=== PATIENT | female | born 1980 | race Caucasian/White ===

== ENCOUNTER 2017-09-13 14:20 | Observation (INO) ==
[2017-09-13] MEDS ORDERED: *HR* HYDROmorphone 2 MG/ML SYRINGE IVP ONE (16:52)
--- NOTE | 2017-09-13 16:56 | Emergency Department Note ---
Disposition Clinical Impression: Lumbar disc herniation, Intractable back pain Abdominal pain Qualifiers: Abdominal location: unspecified location Qualified Code(s): R10.9 - Unspecified abdominal pain Sciatica Qualifiers: Laterality: right Qualified Code(s): M54.31 - Sciatica, right side Disposition: Admitted As Inpatient Condition: Fair Time of Disposition: 17:06 Abdominal Pain HPI - General Chief Complaint: ED Abdominal Pain Stated Complaint: ABD Pain/Right leg Time Seen by Provider: 09/13/17 16:32 Source: patient Mode of arrival: ambulatory Limitations: no limitations Nursing Notes Reviewed: Yes Vital Signs Reviewed: Yes - History of Present Illness HPI Narrative: 37-year-old female presents to emergency Department with concerns of left lower quadrant abdominal pain. I evaluated the patient yesterday for concerns of left small lower extremity paresthesias as well as a radiculopathy down the right lower extremity. MRI was obtained yesterday which showed herniated disks in the lumbar spine however it did not show evidence of central cord compression. Patient's pain was treated well with lidocaine patch and she was given multiple prescriptions for home. Today the patient states that she slept well last night however while sitting on the couch earlier today she developed acute pain to the left lower quadrant of the abdomen. Patient states the pain is sharp and stabbing, does not radiate. Denies vaginal bleeding or vaginal discharge. Denies hematochezia or melena. Denies recent trauma since the evaluation yesterday. Pain Scale: 10 - Related Data Home Medications Medication Instructions Recorded Confirmed Cetirizine HCl [Zyrtec] 10 mg PO DAILY 04/15/16 09/13/17 Estradiol 2 mg PO DAILY 04/15/16 09/13/17 Losartan Potassium [Cozaar] 100 mg PO DAILY 04/15/16 09/13/17 Spironolactone [Aldactone] 200 mg PO DAILY 04/15/16 09/13/17 Gabapentin [Neurontin] 300 mg PO TID 09/13/17 09/13/17 Ibuprofen [Motrin] 800 mg PO Q6H PRN 09/13/17 09/13/17 Previous Rx's Medication Instructions Recorded OxyCODONE/APAP 5/325 [Percocet 1 - 2 each PO Q6HR PRN #14 tablet 09/12/17 5/325 MG] diazePAM [Valium] 5 mg PO TID #10 tablet 09/12/17 predniSONE [Prednisone] 50 mg PO DAILY #5 tablet 09/12/17 Allergies Allergy/AdvReac Type Severity Reaction Status Date / Time No Known Allergies Allergy Verified 09/12/17 11:05 All systems ED: reviewed and negative except as stated. Review of Systems: As Per HPI Abdominal Pain PMH - Past Medical History Medical history: Reports: hypertension, migraine Female Surgical History: Reports: appendectomy, cholecystectomy, hysterectomy, orthopedic, other, Tonsillectomy [employer] history: Reports: polycystic ovary syndrome, bilateral tubal ligation Psychiatric history: Reports: no psych history - Social History Smoking status: Never smoker Alcohol use: Reports: none Drug use: Reports: none Physical Exam General: Alert, standing at the bedside, crying secondary to pain. Skin: Warm, dry, intact Head: Normocephalic and atraumatic Neck: Supple, trachea midline and no tenderness Cardiovascular: RRR, no murmur, normal perfusion Respiratory: CTAB, no wheezing, cough, or respiratory distress Musculoskeletal: Normal strength, no tenderness, swelling or deformity GI: Soft, tenderness to palpation of the left lower quadrant of the abdomen without evidence of rigidity, guarding, or rebound. Neuro: A&O to person, place, time and situation. Patient has paresthesias to the left proximal lateral thigh in the distribution of L4. Patient ambulating in the emergency department and does not have loss of motor function or strength. - General Limitations: no limitations General appearance: alert, in no apparent distress Course Vital Signs Temperature 98.9 F 09/13/17 14:21 Pulse Rate 115 09/13/17 14:21 Respiratory Rate 20 09/13/17 14:21 Blood Pressure 136/84 09/13/17 14:21 O2 Sat by Pulse Oximetry 96 09/13/17 14:21 Temperature 98.9 F 09/13/17 14:21 Pulse Rate 86 09/13/17 19:44 Respiratory Rate 15 09/13/17 19:44 Blood Pressure 135/82 09/13/17 19:44 O2 Sat by Pulse Oximetry 96 09/13/17 19:44 Oxygen Delivery Oxygen Delivery Room Air Abdominal Pain - MDM Narrative Medical decision making narrative: 1650: Patient was asked whether her to the back was worse today however she states it is unchanged and possibly improved as she was able to sleep during the night. Patient stated initially that she was only concerned about both the left lower quadrant abdominal pain as well as the back pain. I ordered a CT of the abdomen and pelvis to evaluate for possible colitis versus diverticulitis versus ureterolithiasis. I also ordered pain medications in an attempt to treat her pain. Patient then spoke to the nurse stating she wanted to leave the hospital without further evaluation and wishes to go to [place] for further evaluation of her back pain. Patient was counseled on benefits and risks of treatment end of the risks of leaving without sufficient evaluation being performed and she repeated what was discussed in own terms. 1705: Patient now agrees to stay for further care and evaluation. We will continue with initial plan of CT and pain medication for further evaluation. 1920: Patient was given multiple doses of pain medications. She is still in considerable pain and crying in the room. She does not feel comfortable to return home to follow-up with primary care provider. Patient will be admitted for further care of her intractable pain. - Medical Records Medical records reviewed: Yes I reviewed the patient's medical records. - Lab Data Lab Results 09/13/17 Range/Units 17:10 Urine Color Yellow (Yellow) Urine Clarity Clear (Clear) Urine pH 6.0 (5.0-8.0) pH Units Ur Specific [place] > 1.030 H (1.010-1.025) Urine Protein Trace (Neg-Trace) mg/dL Urine Glucose (UA) Normal (Normal) mg/dL Urine Ketones Negative (Negative) mg/dL Urine Blood Negative (Negative) Urine Nitrite Negative (Negative) Urine Bilirubin Small H (Negative) Urine Urobilinogen Normal (Normal) mg/dL Ur Leukocyte Esterase Negative (Negative) Urine Microscopic RBC 0-3 (0-3) per hpf Urine Microscopic WBC 5-15 H (0-3) per hpf Ur Squamous Epith Cells Many H (None-Few) per lpf Calcium Oxalate Crystal Present Urine Bacteria Few (None-Few) per hpf Hyaline Casts None Seen (None-Few) per lpf Ur Culture Indicated? NO (NO) - Radiology Data Radiology results reviewed: Yes I reviewed the patient's radiology results.
[2017-09-13 17:23] LABS: Bilirubin,Urine Small (Negative); Blood,Urine Negative (Negative); Clarity,Urine Clear (Clear); Color,Urine Yellow (Yellow); Glucose,Urine (UA) Normal (Normal); Ketones,Urine Negative (Negative); Leukocyte Esterase,Urine Negative (Negative); Nitrite,Urine Negative (Negative); Protein,Urine Trace mg/dL (Neg-Trace); Specific Gravity,Urine > 1.030 (1.010-1.025); Urobilinogen,Urine Normal (Normal)
[2017-09-13 17:25] LABS: Bacteria,Urine Few per hpf (None-Few); Hyaline Casts,Urine None Seen per lpf (None-Few); Squamous Epithelial Cell,Urine Many per lpf (None-Few)
[2017-09-13 17:34] LABS: Calcium Oxalate Crystals,Urine Present; RBC,Urine 0-3 per hpf (0-3)
[2017-09-13] MEDS ORDERED: *HR* HYDROmorphone (PF) 1 MG/ML SYRINGE IVP ONE (19:03)
[2017-09-13] MEDS ORDERED: Ondansetron 4 MG/2 ML VIAL IVP ONE (19:03)
--- NOTE | 2017-09-13 21:06 | Internal Med History&Physical ---
Date of Encounter: 09/13/17 Time of Encounter: 20:45 Assessment and Plan (1) Lumbar disc herniation Current visit: Yes Status: Acute Add steroids, muscle relaxant, pain control, discussed with spine surgery he will come and evaluate patient (2) Abdominal pain Current visit: Yes Status: Acute Possible secondary to constipation would add laxative Qualifiers: Abdominal location: lower abdomen, unspecified Qualified Code(s): R10.30 - Lower abdominal pain, unspecified (3) Intractable back pain Current visit: Yes Status: Acute Titrate medication, try to avoid narcotics use non narcotics if possible Internal Medicine - H&P: HPI Chief complaint: Back pain Admitted From: Emergency Dept History of present illness: Ms. Santana is a 37 year old female came to the emergency room was complaining of two-week history of severe lower back pain 10 out of 10 in severity pressure- like sensation radiating to bilateral lower extremity associated with the right lower extremity shooting pain and numbness tingling sensation left lower extremity in addition to weakness left lower extremities compared to right or right lower extremities. Patient stated that she was treated as an outpatient and she was given steroid in addition to Motrin which helped to improve her pain. Patient stated after she finished her steroid she started to have severe lower back pain 10 out of 10 in severity, patient had MRI done yesterday which showed small central disc extrusion at L5-S1 with slight inferior migration. No gross nerve root compression or stenosis is identified. Past Med Surg Social Fam HX - Past Medical History Medical history: hypertension, migraine Psychiatric history: no psych history - Past Surgical History Surgical History: appendectomy, , hysterectomy, orthopedic, other - Social History Smoking Status: Never smoker Smokeless Tobacco Status: No Alcohol use: none Drug use: none - Family History Father Living Status: Hx Family Cardiac Disorders: Yes Mother Hx Family Cardiac Disorders: Yes (HTN) Hx Family Endocrine Disorder: Yes (Graves disease) Internal Medicine - H&P: Meds Cetirizine HCl [Zyrtec] 10 mg PO DAILY 04/15/16 [History] Estradiol 2 mg PO DAILY 04/15/16 [History] Losartan Potassium [Cozaar] 100 mg PO DAILY 04/15/16 [History] Spironolactone [Aldactone] 200 mg PO DAILY 04/15/16 [History] OxyCODONE/APAP 5/325 [Percocet 5/325 MG] 1 - 2 each PO Q6HR PRN #14 tablet 09/12 [Rx] diazePAM [Valium] 5 mg PO TID #10 tablet 09/12/17 [Rx] predniSONE [Prednisone] 50 mg PO DAILY #5 tablet 09/12/17 [Rx] Gabapentin [Neurontin] 300 mg PO TID 09/13/17 [History] Ibuprofen [Motrin] 800 mg PO Q6H PRN 09/13/17 [History] 3 Allergy/AdvReac Type Severity Reaction Status Date / Time No Known Allergies Allergy Verified 09/12/17 11:05 All Systems PM: A 10-system review of systems was performed and is negative for pertinent findings except as documented above in the HPI. - Constitutional Vitals: Temp Pulse Resp BP Pulse Ox 98.9 F 76 14 124/76 95 09/13/17 14:21 09/13/17 20:38 09/13/17 20:38 09/13/17 20:38 09/13/17 20:38 - Head Head exam: Present: atraumatic, normocephalic - Neck Neck exam general surgery: Present: supple, trachea midline. Absent: lymphadenopathy - Respiratory Respiratory exam: Present: decreased breath sounds. Absent: accessory muscle use, rales, rhonchi, wheezes - Cardiovascular Cardiovascular exam: Present: RRR, +S1, +S2. Absent: diastolic murmur, gallop, rubs, systolic murmur - GI/Abdominal GI/Abdominal exam: Present: normal bowel sounds, soft, no peritoneal signs. Absent: distended, tenderness - Extremities Exam Extremities exam: Present: warm, radial pulses palpable and symmetrical. Absent : calf tenderness, cyanotic, pedal edema - Back Exam Back exam: Present: paraspinal tenderness (L spine spine and paraspinal muscle tenderness) Additional comments: Leg raising test positive bilateral - Neurological Exam Neurological exam: Present: CN II-XII intact, oriented X3, no focal deficits, strengths equal and symetr throughout. Absent: motor sensory deficit, facial droop, speech deficit - Skin Skin exam: Present: dry, intact Internal Med - H&P Results - Labs CBC & Chem 7: 09/14/17 05:38 09/14/17 05:38
[2017-09-13] MEDS ORDERED: Naloxone 0.4 MG/ML INJ IVP PRN (21:42)
[2017-09-13] MEDS ORDERED: Acetaminophen 325 MG TABLET PO PRN (21:54)
[2017-09-13] MEDS ORDERED: Ondansetron ODT 4 MG TAB.RAPDIS SL PRN (21:54)
[2017-09-13] MEDS ORDERED: methylPREDNISolone 125 MG/2 ML VIAL IM ONE (22:40)
[2017-09-13] MEDS: *HR* Morphine 2 MG/ML SYRINGE IVP PRN (23:06)
[2017-09-14] MEDS: *HR* Morphine 2 MG/ML SYRINGE IVP PRN ×2 (03:28→09:30)
[2017-09-14] MEDS ORDERED: *HR* Morphine 2 MG/ML SYRINGE IVP ONE (04:56)
[2017-09-14 06:40] LABS: Hematocrit 38.3 % (35.3-44.9); Lymphocytes % 10.5 %; Mean Corpuscular HGB Conc 32.1 g/dL (31.6-35.5); Mean Corpuscular Hemoglobin 29.2 pg (28.0-33.3); Mean Platelet Volume 9.4 fL (9.4-12.4); Monocytes % 1.9 %; Platelet Count 312 K/mcL (140-400); Red Blood Count 4.21 M/mcL (3.82-4.97); Red Cell Distribution Width 12.2 % (11.5-14.5); Segmented Neutrophils % 86.2 %
[2017-09-14 06:41] LABS: Basophils % 0.3 %; Eosinophils % 0.1 %; Lymphocytes # 1.1 K/mcL (0.6-4.6); Monocytes # 0.2 K/mcL (0.0-1.3); Neutrophils # 9.2 K/mcL (1.6-8.9)
[2017-09-14 06:47] LABS: Hemoglobin 12.3 g/dL (11.5-15.4)
[2017-09-14 07:02] LABS: BUN/Creatinine Ratio 19 (6-26); Blood Urea Nitrogen 15 mg/dL (6-20); Calcium 8.7 mg/dL (8.6-10.3); Carbon Dioxide 25 mEq/L (23-29); Chloride 106 mEq/L (98-107); Glucose 137 mg/dL (70-105); Osmolality,Calculated 285 (280-300); Phosphorous 2.8 mg/dL (2.7-4.5); Potassium 4.5 mEq/L (3.5-5.1); Sodium 136 mEq/L (136-145); eGFR For African Americans > 60 (> 60); eGFR For Non-African Americans > 60 (> 60)
[2017-09-14] MEDS ORDERED: Sennosides/Docusate Sodium TABLET PO PRN (08:17)
[2017-09-14] MEDS ORDERED: *HR* HYDROcodone/Acet 5/325 mg TABLET PO PRN (11:28)
--- NOTE | 2017-09-14 12:25 | Spinal Consult Note ---
Date of Encounter: 09/14/17 Time of Encounter: 12:22 Assessment and Plan (1) Lumbar degenerative disc disease Current Visit: Yes Status: Chronic On exam she is lying comfortably in bed afebrile vital signs stable. She fires all upper and lower extremity motor groups with good strength. Her hips move symmetrically. She has a negative straight leg raise. She has no clonus. MRI of the lumbar spine reveals disc desiccation and a small disc herniation at L5-S1. There is no significant foraminal or central canal stenosis seen. Impression: 1) lumbar degenerative disc disease 2) lumbar radiculopathy 3) lumbar disc herniation Plan: I have suggested she do outpatient physical therapy and low back program to include modalities. This can be outlined by Dr. Silver. I am can attempt to move up her interventional pain appointment with Dr. Pittman if possible. If not I think consideration of interventional treatments such as lumbar epidural steroid injections is quite reasonable. The patient understands she does not require surgical intervention. (2) Lumbar radiculopathy Current Visit: Yes Status: Chronic History of Present Illness Chief complaint: Pain and right leg pain HPI: Ms. Santana is a 37 year old female Had intermittent problems with back and bilateral lower extremity pain right greater than left over several months. This is prompted several emergency department visits. She has been treated with oral steroids with some relief of symptoms. She had a recent episode in the past couple days which prompted admission for pain control. She says she has some weakness in the lower extremities subjectively. She denies any bowel bladder symptomatology. She denies any fevers or chills. Are asked see regarding treatment recommendations. has seen Dr Farah in the [facility] and had some conservative treatment. He is been referred to Dr. Pittman in pain management for consideration of interventional treatments on 10/04/2017. Past Med Surg Social Fam HX - Past Medical History Medical history: hypertension, migraine Psychiatric history: no psych history - Past Surgical History Surgical History: appendectomy, , hysterectomy, orthopedic, other - Social History Smoking Status: Never smoker Smokeless Tobacco Status: No Alcohol use: none Drug use: none - Family History Mother Hx Family Cardiac Disorders: Yes (HTN) Hx Family Endocrine Disorder: Yes (Graves disease) Father Living Status: Hx Family Cardiac Disorders: Yes Medications and Allergies Cetirizine HCl [Zyrtec] 10 mg PO DAILY 04/15/16 [History] Estradiol 2 mg PO DAILY 04/15/16 [History] Losartan Potassium [Cozaar] 100 mg PO DAILY 04/15/16 [History] Spironolactone [Aldactone] 200 mg PO DAILY 04/15/16 [History] OxyCODONE/APAP 5/325 [Percocet 5/325 MG] 1 - 2 each PO Q6HR PRN #14 tablet 09/12 [Rx] diazePAM [Valium] 5 mg PO TID #10 tablet 09/12/17 [Rx] predniSONE [Prednisone] 50 mg PO DAILY #5 tablet 09/12/17 [Rx] Gabapentin [Neurontin] 300 mg PO TID 09/13/17 [History] Ibuprofen [Motrin] 800 mg PO Q6H PRN 09/13/17 [History] 3 Allergy/AdvReac Type Severity Reaction Status Date / Time No Known Allergies Allergy Verified 09/12/17 11:05 Results - Labs Result Diagrams: 09/14/17 05:38 09/14/17 05:38 Labs: Abnormal lab results Neutrophils # 9.2 K/mcL (1.6-8.9) H 09/14/17 05:38 Glucose 137 mg/dL (70-105) H 09/14/17 05:38 Ur Specific [place] > 1.030 (1.010-1.025) H 09/13/17 17:10 Urine Bilirubin Small (Negative) H 09/13/17 17:10 Urine Microscopic WBC 5-15 per hpf (0-3) H 09/13/17 17:10 Ur Squamous Epith Cells Many per lpf (None-Few) H 09/13/17 17:10 H & H 09/14/17 Range/Units 05:38 Hgb 12.3 D (11.5-15.4) g/dL Hct 38.3 (35.3-44.9) % All other labs normal. Consult Discharge Plan - Plan Referrals: Monica Pro MD [Primary Care Provider] -
[2017-09-14 15:36] VITALS: BP 101/61
--- NOTE | 2017-09-14 16:32 | Discharge Summary ---
Date of Encounter: 09/14/17 Time of Encounter: 09:50 - Discharge Diagnosis (1) Lumbar disc herniation Priority: Primary Status: Acute Comments: Patient has had multiple Medrol Dosepaks, muscle relaxants, recent prescription for Percocet 2 days ago. She has been seen by Dr. Rao. No surgery recommended at this time. He recommend outpatient physical therapy and low back program to include modalities. Ms. up interventional pain appointments with pain management. He also recommends interventional treatment such as lumbar epidural injections if appointment cannot be moved up. (2) Abdominal pain Priority: Secondary Status: Acute Comments: The patient denies abdominal pain, she does report pain radiating from low back around left hip and into the left groin. Her abdomen is soft and nontender to palpation. She denies any bowel or bladder difficulties. Patient had CT abdomen and pelvis that showed no acute intra-abdominal intrapelvic processes. Qualifiers: Abdominal location: lower abdomen, unspecified Qualified Code(s): R10.30 - Lower abdominal pain, unspecified (3) Intractable back pain Priority: Secondary Status: Acute Comments: Pt has had pain all day, however, on discharge she becomes tearful. Pt has percocet at home, will give steroids and Ibuprofen. Pt has appointment with pain management and will follow up with primary care for referral to physical therapy. (4) Lumbar degenerative disc disease Priority: Secondary Status: Chronic Comments: MRI of the lumbar spine reveals disc desiccation and a small disc herniation at L5-S1. There is no significant foraminal or central canal stenosis seen. Patient reported to meal during physical examination was unable to lift her left leg from the bed. She did have a negative straight leg raise to the right lower extremity. She denies any change in bowel or bladder habits and no incontinence. She denies loss of sensation in any extremity. Plan as above. (5) Lumbar radiculopathy Priority: Primary Status: Chronic Comments: Plan as above. - Discharge Medications Prescriptions: Ibuprofen [Motrin] 600 mg PO Q6HR PRN #60 tab PRN Reason: Pain HYDROcodone/Acet 5/325 mg [[place] 5-325 mg] 1 tab PO BID PRN #2 tablet PRN Reason: Severe Pain Home Medications: Cetirizine HCl [Zyrtec] 10 mg PO DAILY 04/15/16 [History] Estradiol 2 mg PO DAILY 04/15/16 [History] Losartan Potassium [Cozaar] 100 mg PO DAILY 04/15/16 [History] Spironolactone [Aldactone] 200 mg PO DAILY 04/15/16 [History] OxyCODONE/APAP 5/325 [Percocet 5/325 MG] 1 - 2 each PO Q6HR PRN #14 tablet 09/12 [Rx] diazePAM [Valium] 5 mg PO TID #10 tablet 09/12/17 [Rx] predniSONE [Prednisone] 50 mg PO DAILY #5 tablet 09/12/17 [Rx] Gabapentin [Neurontin] 300 mg PO TID 09/13/17 [History] Ibuprofen [Motrin] 800 mg PO Q6H PRN 09/13/17 [History] HYDROcodone/Acet 5/325 mg [[place] 5-325 mg] 1 tab PO BID PRN #2 tablet 09/14/17 [ Rx] Ibuprofen [Motrin] 600 mg PO Q6HR PRN #60 tab 09/14/17 [Rx] Allergies/Adverse Reactions: 3 Allergy/AdvReac Type Severity Reaction Status Date / Time No Known Allergies Allergy Verified 09/12/17 11:05 Date of admission: 09/13/17 19:51 Primary care physician: Monica Pro MD Consults: 09/13/17 22:04 Consult to Physician [CONS] Routine Consulting Provider: Bhupinder Rao Jr Reason for Consult: Sever back pain with leg weakness Call Completed: Yes Discharging clinician: Karen Johnson Anticipated date of discharge: 09/14/17 - Patient Status Disposition: Home, Self-Care Condition: Good Functional capacity at discharge: independent ambulation Overall status at discharge: patient is progressing back to baseline - Discharge Instructions Follow Up With: Monica Pro MD [Primary Care Provider] - Additional Instructions: Please follow with primary care JESSENIA for referral to physical therapy. Take home dose of Percocet for pain. Follow up with pain management as scheduled. Return to ER as needed for problems or concerns, or if symptoms return or worsen. Resume her normal medications at activities as tolerated. - Diet and Activity Activity: as per physical therapy, increase activity as tolerated Diet: advance to your usual diet Hospital course: Ms. Santana is a 37 year old female with chronic back pain who presents to the emergency department with abdominal pain as well as back pain with radiation to bilateral lower extremities. Patient reports short stabbing pains to both legs , pressure to right upper leg. Patient normally goes to Hospital in [place]. She has been given several Medrol Dosepaks as well as anti-inflammatories with resolution of pain, as soon as steroids are finished, she states the pain returns. She has been seen by Dr. Rao, there is no surgical intervention required at this time. She is going to follow-up with pain management and he has recommended physical therapy. Patient will need to follow up with her primary care provider. Per [facility] report, On September 12 she was given Percocet , she will take these when she gets home. - Time Spent with Patient Total time spent providing and/or coordinating discharge services: Less than 30 minutes - Constitutional Vitals: Temp Pulse Resp BP Pulse Ox 98.1 F 105 16 101/61 97 09/14/17 15:30 09/14/17 15:30 09/14/17 15:30 09/14/17 15:30 09/14/17 15:30 General appearance: Present: cooperative, A&O X 3, morbidly obese, pleasant, no acute distress, answers questions appropriately - Head Head exam: Present: atraumatic, normal inspection, normocephalic - Eye Eye exam: Present: conjuntiva pink, sclera anicteric - Neck Neck exam general surgery: Present: supple, trachea midline. Absent: lymphadenopathy, tenderness - Respiratory Respiratory exam: Present: CTAB. Absent: accessory muscle use, chest wall tenderness, decreased breath sounds, rales, respiratory distress, rhonchi, wheezes - Cardiovascular Cardiovascular exam: Present: RRR, +S1, +S2. Absent: diastolic murmur, gallop, rubs, systolic murmur - GI/Abdominal GI/Abdominal exam: Present: normal bowel sounds, soft, no peritoneal signs. Absent: distended, hepatomegaly, tenderness - Extremities Exam Extremities exam: Present: normal capillary refill, normal inspection, warm, radial pulses palpable and symmetrical. Absent: calf tenderness, cyanotic, pedal edema - Neurological Exam Neurological exam: Present: CN II-XII intact, oriented X3, no focal deficits. Absent: pronater drift, facial droop, speech deficit - Skin Skin exam: Present: dry, intact, normal color, warm. Absent: rash
[2017-09-14] MEDS ORDERED: methylPREDNISolone 125 MG/2 ML VIAL IM ONE (20:00)
== END 2017-09-14 17:00 | disposition home or self-care (01) ==
LOC: 3BNU 14:20 → EMEROO 14:20 → 3BNU 20:51
PROVIDERS: ADMIT Family Medicine; ATTEND Registered Nurse